=== PATIENT | female | born 1990 | race Caucasian/White ===

== ENCOUNTER 2016-07-27 11:36 | Emergency (ER) | payer OTHER ==
[~2016-07-27] VITALS: Ht 167.6 cm; Wt 79.0 kg
[~2016-07-27 11:36] MED LIST: CEFD300C2 PO; IBUP-1222 PO; IBUP800T PO; ONDA4TAB10 PO; OXYC-302 PO; PNV1TAB.5 PO
[2016-07-27 11:41] VITALS: BP 136/92
[2016-07-27] MEDS ORDERED: ONDANSETRON ODT 4 MG ONE (12:39)
[2016-07-27] MEDS ORDERED: ONDANSETRON ODT 4 MG PO ONE (13:30)
== END 2016-07-27 13:51 | disposition home or self-care (01) ==
LOC: ED 12:22
DX: S39.012A Strain of muscle, fascia and tendon of lower back, initial encounter (principal); S33.5XXA Sprain of ligaments of lumbar spine, initial encounter; F17.210 Nicotine dependence, cigarettes, uncomplicated; X50.9XXA Other and unspecified overexertion or strenuous movements or postures, initial encounter; Y93.89 Activity, other specified; Y92.89 Other specified places as the place of occurrence of the external cause; Y99.8 Other external cause status
CPT/HCPCS: 72072; 72110; 99284; Q0162

== ENCOUNTER 2016-08-09 18:24 | Emergency (ER) | payer OTHER ==
[~2016-08-09] VITALS: Ht 167.6 cm; Wt 79.6 kg
[~2016-08-09 18:24] MED LIST changes: -CEFD300C2 PO; +CEFD300C37 PO
[2016-08-09] MEDS ORDERED: ONDANSETRON 2MG/ML, 2ML ONE ×2 (18:59→20:54)
[2016-08-09] MEDS ORDERED: FAMOTIDINE 20 MG/2 ML ONE (18:59)
[2016-08-09] MEDS ORDERED: SODIUM CHLORIDE FLUSH 10ML SYR IVF ONE (19:00)
[2016-08-09] MEDS ORDERED: SODIUM CHLORIDE 0.9% 1,000ML IVBOLUS ONE (19:00)
[2016-08-09] MEDS ORDERED: FAMOTIDINE 20 MG/2 ML IVP ONE (19:00)
[2016-08-09] MEDS ORDERED: DICYCLOMINE 10 MG/ML, 2ML IM ONE (19:00)
[2016-08-09] MEDS ORDERED: ONDANSETRON 2MG/ML, 2ML IVPush ONE ×2 (19:00→21:00)
[2016-08-09 19:25] LABS: ASPARTATE AMINO TRANSFERASE 25 U/L (15-37); BLOOD UREA NITROGEN 8 mg/dL (7-18)
[2016-08-09] MEDS ORDERED: SERT50TA PO (19:34)
[2016-08-09] MEDS ORDERED: TRAZ100T15 PO (19:34)
[2016-08-09] MEDS ORDERED: ZOLP10TA PO (19:34)
[2016-08-09] MEDS ORDERED: ALPR1TAB2 PO (19:34)
[2016-08-09 20:41] VITALS: BP 126/72
== END 2016-08-09 22:47 | disposition home or self-care (01) ==
LOC: ED 22:08
DX: E86.0 Dehydration (principal); R19.7 Diarrhea, unspecified; R11.2 Nausea with vomiting, unspecified
CPT/HCPCS: 36415; 80053; 81001; 83690; 84703; 85025; 87086; 96361; 96372; 96374; 96375; 96376; 99284; J0500; J2405; J7030; S0028

== ENCOUNTER 2016-11-16 07:48 | Emergency (ER) | payer OTHER ==
[~2016-11-16] VITALS: Ht 167.6 cm; Wt 77.9 kg
[~2016-11-16 07:48] MED LIST changes: +ALPR1TAB2 PO; +SERT50TA PO; +TRAZ100T15 PO; +ZOLP10TA PO
[2016-11-16 07:50] VITALS: BP 126/90
[2016-11-16] MEDS ORDERED: IBUPROFEN 200 MG TABLET ONE (08:22)
[2016-11-16] MEDS ORDERED: IBUPROFEN 200 MG TABLET PO ONE (08:30)
== END 2016-11-16 09:30 | disposition home or self-care (01) ==
LOC: ED 09:02
DX: S83.91XA Sprain of unspecified site of right knee, initial encounter (principal); X58.XXXA Exposure to other specified factors, initial encounter; Y93.89 Activity, other specified; Y99.0 Civilian activity done for income or pay; Y92.69 Other specified industrial and construction area as the place of occurrence of the external cause
CPT/HCPCS: 29505; 99284

== ENCOUNTER 2017-02-17 10:24 | Emergency (ER) | payer OTHER ==
[~2017-02-17] VITALS: Ht 167.6 cm; Wt 79.3 kg
[~2017-02-17 10:24] MED LIST changes: +IBUP-1223 PO; -IBUP800T PO
[2017-02-17] MEDS ORDERED: KETOROLAC 30 MG/1 ML IVPush ONE (11:30)
[2017-02-17] MEDS ORDERED: SODIUM CHLORIDE FLUSH 10ML SYR IVF ONE (11:30)
[2017-02-17] MEDS ORDERED: SODIUM CHLORIDE 0.9% 1,000ML IVBOLUS ONE (11:30)
[2017-02-17] MEDS ORDERED: METOCLOPRAMIDE 5 MG/ML, 2ML IVPush ONE (11:30)
[2017-02-17] MEDS ORDERED: DIPHENHYDRAMINE 50 MG/ML, 1ML IVPush ONE (11:30)
[2017-02-17] MEDS ORDERED: DIPHENHYDRAMINE 50 MG/ML, 1ML ONE (11:39)
[2017-02-17] MEDS ORDERED: KETOROLAC 30 MG/1 ML ONE (11:39)
[2017-02-17] MEDS ORDERED: METOCLOPRAMIDE 5 MG/ML, 2ML ONE (11:39)
[2017-02-17 12:03] LABS: HEMATOCRIT 42.3 % (34.6-47.8); HEMOGLOBIN 14.3 g/dL (11.7-16.4); WHITE BLOOD COUNT 6.3 x10^3/uL (3.4-10)
[2017-02-17 12:05] LABS: ASPARTATE AMINO TRANSFERASE 10 U/L (15-37); BLOOD UREA NITROGEN 10 mg/dL (7-18)
[2017-02-17 12:24] LABS: PATH.CAST-FLAG NOT PRESENT; SPERM-FLAG NOT PRESENT; SRC-FLAG NOT PRESENT; XTAL-FLAG NOT PRESENT; YLC-FLAG NOT PRESENT
[2017-02-17 13:23] VITALS: BP 108/73
== END 2017-02-17 13:29 | disposition home or self-care (01) ==
LOC: ED 10:46
DX: R51 Headache (principal); Z87.891 Personal history of nicotine dependence; Z90.49 Acquired absence of other specified parts of digestive tract
CPT/HCPCS: 36415; 70450; 80053; 81001; 84703; 85025; 87086; 96361; 96374; 96375; 99285; J1200; J1885; J2765; J7030

== ENCOUNTER 2017-02-25 09:34 | Emergency (ER) | payer OTHER ==
[~2017-02-25] VITALS: Ht 167.6 cm; Wt 79.2 kg
[2017-02-25] MEDS ORDERED: SODIUM CHLORIDE FLUSH 10ML SYR IVF ONE (10:00)
[2017-02-25] MEDS ORDERED: KETOROLAC 30 MG/1 ML IVPush ONE (10:00)
[2017-02-25] MEDS ORDERED: CYCLOBENZAPRINE 10 MG TABLET PO ONE (10:00)
[2017-02-25] MEDS ORDERED: KETOROLAC 30 MG/1 ML ONE (10:16)
[2017-02-25 10:22] LABS: HEMATOCRIT 40.7 % (34.6-47.8); HEMOGLOBIN 13.8 g/dL (11.7-16.4); WHITE BLOOD COUNT 5.9 x10^3/uL (3.4-10)
[2017-02-25] MEDS ORDERED: CYCLOBENZAPRINE 10 MG TABLET ONE (10:27)
[2017-02-25 10:33] LABS: BLOOD UREA NITROGEN 9 mg/dL (7-18)
[2017-02-25] MEDS ORDERED: OMNIPAQUE 350 MG/ML, 100ML BOTTLE ONE (11:23)
[2017-02-25] MEDS ORDERED: AZIT250T PO (11:28)
[2017-02-25] MEDS ORDERED: BENZ-17 PO (11:28)
[2017-02-25 12:01] VITALS: BP 121/82
== END 2017-02-25 12:05 | disposition home or self-care (01) ==
LOC: ED 10:19
DX: M94.0 Chondrocostal junction syndrome [Tietze] (principal); J20.8 Acute bronchitis due to other specified organisms; B97.89 Other viral agents as the cause of diseases classified elsewhere; R91.1 Solitary pulmonary nodule; Z90.49 Acquired absence of other specified parts of digestive tract
CPT/HCPCS: 36415; 71020; 71275; 80048; 82040; 85025; 85379; 93005; 96374; 99285; J1885; Q9967

== ENCOUNTER → 2017-04-05 | Outpatient (CLI) | payer OTHER ==
[~2017-04-05] MED LIST changes: +AZIT250T PO; +BENZ-17 PO
== END | disposition home or self-care (01) ==
LOC: RAD 10:24
PROVIDERS: ATTEND Family Medicine
DX: M25.512 Pain in left shoulder (principal)

== ENCOUNTER 2017-07-13 13:40 | Emergency (ER) | payer OTHER ==
[~2017-07-13] VITALS: Ht 167.6 cm; Wt 84.3 kg
[2017-07-13 13:58] VITALS: BP 134/91
[2017-07-13] MEDS ORDERED: KETOROLAC 30 MG/1 ML ONE (14:43)
[2017-07-13] MEDS ORDERED: KETOROLAC 30 MG/1 ML IM ONE (15:00)
== END 2017-07-13 15:47 | disposition home or self-care (01) ==
LOC: ED 15:41
DX: S46.011A Strain of muscle(s) and tendon(s) of the rotator cuff of right shoulder, initial encounter (principal); W22.8XXA Striking against or struck by other objects, initial encounter; Y93.89 Activity, other specified; Y92.89 Other specified places as the place of occurrence of the external cause; Y99.8 Other external cause status; Z90.49 Acquired absence of other specified parts of digestive tract
CPT/HCPCS: 73030; 96372; 99284; J1885

== ENCOUNTER → 2017-07-26 | Outpatient (CLI) | payer OTHER ==
[2017-07-26 11:46] LABS: MICROSCOPIC AUTO
[2017-07-26 11:48] LABS: BASOPHILS # (AUTO) 0.04 x10^3/uL (0-0.1); BASOPHILS % (AUTO) 1 % (0-1); EOSINOPHILS # (AUTO) 0.12 x10^3/uL (0-0.4); EOSINOPHILS % (AUTO) 2 % (1-7); LYMPHOCYTES # (AUTO) 1.66 x10^3/uL (1-3.4); LYMPHOCYTES % (AUTO) 25 % (22-44); MD NO; MEAN CORPUSCULAR HEMOGLOBIN 31.2 pg (27.0-34.8); MEAN CORPUSCULAR HGB CONC 33.3 g/dL (32.4-35.8); MEAN CORPUSCULAR VOLUME 93.7 fL (80-100); MEAN PLATELET VOLUME 9.3 fL (7.4-10.4); MONOCYTES # (AUTO) 0.54 x10^3/uL (0.2-0.8); MONOCYTES % (AUTO) 8 % (2-9); NEUTROPHILS # (AUTO) 4.31 x10^3/uL (1.8-6.8); NEUTROPHILS % (AUTO) 65 % (42-75); PLATELET COUNT 274 x10^3/uL (130-400); RED BLOOD COUNT 4.52 x10^6/uL (3.82-5.3); RED CELL DISTRIBUTION WIDTH 13.9 % (9.6-15.2)
[2017-07-26 11:55] LABS: CULTURE INDICATED? YES
[2017-07-26 11:58] LABS: ALBUMIN 3.8 g/dL (3.4-5.0); ANION GAP 6 mmol/L (5-15); CALCIUM 8.7 mg/dL (8.5-10.1); CHLORIDE 109 mmol/L (98-107)
[2017-07-26 12:04] LABS: ALANINE AMINOTRANSFERASE 21 U/L (12-78); ALKALINE PHOSPHATASE 65 U/L (45-117); BILIRUBIN,TOTAL 0.7 mg/dL (0.2-1.0); CREATININE 0.82 mg/dL (0.55-1.02); TOTAL PROTEIN 7.3 g/dL (6.4-8.2)
== END | disposition home or self-care (01) ==
LOC: STAR 10:52
PROVIDERS: ATTEND Obstetrics & Gynecology Gynecology
DX: Z01.818 Encounter for other preprocedural examination (principal); R10.2 Pelvic and perineal pain
CPT/HCPCS: 36415; 80053; 81001; 84702; 85025; 87086

== ENCOUNTER 2017-08-05 05:58 | Day surgery (SDC) | payer OTHER ==
[~2017-08-05] VITALS: Ht 167.6 cm; Wt 85.4 kg
[2017-08-05 06:28] VITALS: BP 129/85
[2017-08-05] MEDS ORDERED: LACTATED RINGERS 1,000 ML IV SCH (06:33)
[2017-08-05] MEDS ORDERED: LIDOCAINE-MPF 1%, 2ML ONE (06:36)
[2017-08-05 06:46] LABS: HCG UR SG 1.013 (1.003-1.030)
[2017-08-05] MEDS ORDERED: LIDOCAINE-MPF 1%, 2ML INFIL ONE (07:00)
[2017-08-05] MEDS ORDERED: BUPIVACAINE 0.25% ONE (07:20)
[2017-08-05] MEDS ORDERED: EPINEPHRINE 1 MG/ML, 1ML ONE (07:20)
[2017-08-05] MEDS ORDERED: SILVER NITRATE STICK TP ONE (07:42)
[2017-08-05] MEDS ORDERED: MIDAZOLAM 1 MG/ML, 2ML ONE (07:43)
[2017-08-05] MEDS ORDERED: FENTANYL PF 250 MCG/5ML ONE (07:43)
[2017-08-05] MEDS ORDERED: SUCCINYLCHOLINE 20 MG/ML, 10ML ONE (07:51)
[2017-08-05] MEDS ORDERED: DEXAMETHASONE 4 MG/ML, 1ML ONE (07:51)
[2017-08-05] MEDS ORDERED: PROPOFOL 10 MG/ML, 20ML ONE (07:51)
[2017-08-05] MEDS ORDERED: ONDANSETRON ODT 8 MG ONE ×2 (07:52)
[2017-08-05] MEDS ORDERED: BUPIVACAINE/PF-EPI 0.25% 1:200K INFIL ONE (08:19)
[2017-08-05] MEDS ORDERED: HYDROmorphone 1 MG/ML, 1ML IV PRN (08:30)
[2017-08-05] MEDS ORDERED: ACETAMINOPHEN 325 MG TABLET PO PRN (08:30)
[2017-08-05] MEDS ORDERED: FENTANYL PF 100 MCG/2ML IV PRN (08:30)
[2017-08-05] MEDS ORDERED: PROMETHAZINE 12.5 MG SUPP PR PRN (08:30)
[2017-08-05] MEDS ORDERED: LORazepam 2 MG/ML, 1ML IVPush PRN (08:30)
[2017-08-05] MEDS ORDERED: morphine SULFATE 10 MG/ML, 1ML IV PRN (08:30)
[2017-08-05] MEDS ORDERED: hydrALAzine 20 MG/ML, 1ML IV PRN (08:30)
[2017-08-05] MEDS ORDERED: PROMETHAZINE 25 MG/ML, 1ML IV PRN (08:30)
[2017-08-05] MEDS ORDERED: MEPERIDINE/PF 25MG/0.5ML IVPush PRN (08:30)
[2017-08-05] MEDS ORDERED: LABETALOL 5MG/ML, 20ML IV PRN (08:30)
[2017-08-05] MEDS ORDERED: OXYcodone 5 MG/5 ML ORAL.SOL UDC PO PRN (08:30)
[2017-08-05] MEDS ORDERED: ACETAMINOPHEN 650 MG/20.3 ML UDC ONE (09:04)
[2017-08-05] MEDS ORDERED: ACETAMINOPHEN 325 MG TABLET ONE (09:05)
[2017-08-05] MEDS ORDERED: FENTANYL PF 100 MCG/2ML ONE (09:05)
[2017-08-05] MEDS ORDERED: OXYcodone 5 MG/5 ML ORAL.SOL UDC ONE (09:06)
[2017-08-05] MEDS ORDERED: KETOROLAC 30 MG/1 ML ONE (09:28)
[2017-08-05] MEDS ORDERED: KETOROLAC 30 MG/1 ML IVPush PRN (09:30)
== END 2017-08-05 12:00 ==
LOC: OUT 05:58
PROVIDERS: ATTEND Obstetrics & Gynecology Gynecology
DX: Z30.2 Encounter for sterilization (principal); N94.10 Unspecified dyspareunia; F32.9 Major depressive disorder, single episode, unspecified; Z98.890 Other specified postprocedural states; Z85.43 Personal history of malignant neoplasm of ovary
CPT/HCPCS: 36415; 58670; 81025; 86850; 86900; 88302; J0171; J0330; J1100; J1885; J2250; J2704; J3010; J3490; J7120; Q0162

== ENCOUNTER 2018-03-30 08:24 | Emergency (ER) | payer OTHER ==
[~2018-03-30] VITALS: Ht 167.6 cm; Wt 83.5 kg
[~2018-03-30 08:24] MED LIST changes: +TRAZ-137 PO; -TRAZ100T15 PO
[2018-03-30] MEDS ORDERED: MECLIZINE CHEWABLE 25 MG TAB PO ONE (09:00)
[2018-03-30 09:19] LABS: BASOPHILS # (AUTO) 0.02 x10^3/uL (0-0.1); BASOPHILS % (AUTO) 0 % (0-1); EOSINOPHILS # (AUTO) 0.16 x10^3/uL (0-0.4); EOSINOPHILS % (AUTO) 3 % (1-7); LYMPHOCYTES # (AUTO) 1.27 x10^3/uL (1-3.4); LYMPHOCYTES % (AUTO) 24 % (22-44); MD NO; MEAN CORPUSCULAR HEMOGLOBIN 31.5 pg (27.0-34.8); MEAN CORPUSCULAR HGB CONC 33.8 g/dL (32.4-35.8); MEAN CORPUSCULAR VOLUME 93.2 fL (80-100); MEAN PLATELET VOLUME 8.8 fL (7.4-10.4); MONOCYTES # (AUTO) 0.37 x10^3/uL (0.2-0.8); MONOCYTES % (AUTO) 7 % (2-9); NEUTROPHILS # (AUTO) 3.43 x10^3/uL (1.8-6.8); NEUTROPHILS % (AUTO) 65 % (42-75); PLATELET COUNT 296 x10^3/uL (130-400); RED BLOOD COUNT 4.35 x10^6/uL (3.82-5.3); RED CELL DISTRIBUTION WIDTH 13.7 % (9.6-15.2)
[2018-03-30 09:31] LABS: ALANINE AMINOTRANSFERASE 16 U/L (12-78); ALBUMIN 3.7 g/dL (3.4-5.0); ANION GAP 7 mmol/L (5-15); CALCIUM 8.7 mg/dL (8.5-10.1); CHLORIDE 108 mmol/L (98-107); CREATININE 0.91 mg/dL (0.55-1.02)
[2018-03-30 09:36] LABS: ALKALINE PHOSPHATASE 69 U/L (45-117); BILIRUBIN,TOTAL 0.3 mg/dL (0.2-1.0); TOTAL PROTEIN 7.2 g/dL (6.4-8.2)
[2018-03-30] MEDS ORDERED: MECLIZINE CHEWABLE 25 MG TAB ONE (09:37)
[2018-03-30 10:08] LABS: MICROSCOPIC AUTO
[2018-03-30 10:14] LABS: CULTURE INDICATED? NO
[2018-03-30 10:40] VITALS: BP 116/78
== END 2018-03-30 11:31 | disposition home or self-care (01) ==
LOC: ED 09:37
DX: R42 Dizziness and giddiness (principal); R19.7 Diarrhea, unspecified; R11.0 Nausea
CPT/HCPCS: 36415; 80053; 81001; 84703; 85025; 93005; 99284

== ENCOUNTER 2018-08-21 10:53 | Emergency (ER) | payer OTHER ==
[~2018-08-21] VITALS: Ht 167.6 cm; Wt 90.0 kg
[2018-08-21 11:07] VITALS: BP 114/80
[2018-08-21] MEDS ORDERED: METOCLOPRAMIDE 10MG TABLET PO ONE (11:30)
[2018-08-21] MEDS ORDERED: KETOROLAC 30 MG/1 ML IM ONE (11:30)
[2018-08-21] MEDS ORDERED: DIPHENHYDRAMINE 25 MG CAPSULE PO ONE (11:30)
--- NOTE | 2018-08-21 12:29 | NUR ---
n/a [id number]
--- NOTE | 2018-08-21 12:39 | NUR ---
No answer in lobby
== END 2018-08-21 12:43 | disposition left against medical advice (07) ==
LOC: ED 12:37
DX: G43.909 Migraine, unspecified, not intractable, without status migrainosus (principal)
CPT/HCPCS: 99281

== ENCOUNTER 2018-10-26 09:22 | Emergency (ER) | payer OTHER ==
[~2018-10-26] VITALS: Ht 167.6 cm; Wt 89.8 kg
[2018-10-26 09:24] VITALS: BP 127/81
== END 2018-10-26 10:56 | disposition home or self-care (01) ==
LOC: ED 10:50
DX: S90.02XA Contusion of left ankle, initial encounter (principal); X58.XXXA Exposure to other specified factors, initial encounter; Y93.89 Activity, other specified; Y92.69 Other specified industrial and construction area as the place of occurrence of the external cause; Y99.8 Other external cause status
CPT/HCPCS: 99283

== ENCOUNTER 2019-05-03 13:20 | Emergency (ER) | payer OTHER ==
[~2019-05-03] VITALS: Ht 167.6 cm; Wt 90.0 kg
[2019-05-03] MEDS ORDERED: SODIUM CHLORIDE FLUSH 10ML SYR IVF ONE (14:30)
[2019-05-03] MEDS ORDERED: SODIUM CHLORIDE 0.9% 1,000ML IVBOLUS ONE (14:30)
[2019-05-03] MEDS ORDERED: KETOROLAC 30 MG/1 ML IVPush ONE (14:30)
[2019-05-03 14:48] LABS: BASOPHILS # (AUTO) 0.03 x10^3/uL (0-0.1); BASOPHILS % (AUTO) 0 % (0-1); EOSINOPHILS # (AUTO) 0.14 x10^3/uL (0-0.4); EOSINOPHILS % (AUTO) 2 % (1-7); LYMPHOCYTES # (AUTO) 1.77 x10^3/uL (1-3.4); LYMPHOCYTES % (AUTO) 27 % (22-44); MD NO; MEAN CORPUSCULAR HGB CONC 33.4 g/dL (32.4-35.8); MEAN CORPUSCULAR VOLUME 92.8 fL (80-100); MEAN PLATELET VOLUME 8.9 fL (7.4-10.4); MONOCYTES # (AUTO) 0.45 x10^3/uL (0.2-0.8); MONOCYTES % (AUTO) 7 % (2-9); NEUTROPHILS # (AUTO) 4.16 x10^3/uL (1.8-6.8); NEUTROPHILS % (AUTO) 64 % (42-75); PLATELET COUNT 304 x10^3/uL (130-400); RED CELL DISTRIBUTION WIDTH 14.3 % (9.6-15.2)
[2019-05-03 14:56] LABS: ALANINE AMINOTRANSFERASE 23 U/L (12-78); ALBUMIN 3.6 g/dL (3.4-5.0); ANION GAP 5 mmol/L (5-15); CALCIUM 8.8 mg/dL (8.5-10.1); CHLORIDE 109 mmol/L (98-107); CREATININE 0.86 mg/dL (0.55-1.02)
[2019-05-03 14:58] LABS: ALKALINE PHOSPHATASE 71 U/L (45-117); BILIRUBIN,TOTAL 0.5 mg/dL (0.2-1.0); TOTAL PROTEIN 7.2 g/dL (6.4-8.2)
--- NOTE | 2019-05-03 15:05 | NUR ---
PT IN IMAGING AT THIS TIME.
--- NOTE | 2019-05-03 15:06 | NUR ---
REPORT AND CARE FROM ANDREIA RN. PT NOT IN ROOM, PT IN IMAGING AT THIS TIME PER ANDREIA EDEN. TO START IV AND COMPLETE ASSESSMENT ON RETURN TO ER
[2019-05-03] MEDS ORDERED: KETOROLAC 30 MG/1 ML ONE ×2 (15:21→15:38)
--- NOTE | 2019-05-03 15:46 | NUR ---
PT BACK FROM RAD. IV PLACED, IVF INFUSING PER MD ORDER. MEDICATED NOTED PER EMAR FOR 01/11 "PELVIC/CRAMPING" PAIN. CONT PULSE OX, BP MONITORS APPLIED. VSS. CALL LIGHT IN REACH. FALL PRECAUTIONS IN PLACE. A&OX4. PT PLACED ON PELVIC BED PER DR. CHILDS REQUEST, PELVIC EXAM SET UP, TO COMPLETE STRAIGHT CATH AT TIME OF PELVIC EXAM PER MD.
--- NOTE | 2019-05-03 16:15 | NUR ---
PELVIC EXAM COMPLETED BY DR. CHILDS WITH ASSISTANCE FROM THIS RN. STRAIGHT CATH UA COLLECTED AND WALKED TO LAB. PT TOLERATED WELL, DENIES ANY PAIN OR DISCOMFORT. RATES "PILVIC/OVARY/CRAMPING PAIN" 10/ S/P MEDICATION, DISCUSSED WITH DR. CHILDS, AWARE, AWAITING ORDERS. CALL LIGHT IN REACH. FALL PRECAUTIONS IN PLACE. VSS. FAMILY AT BEDSIDE
--- NOTE | 2019-05-03 16:16 | NUR ---
BEDSIDE REPORT AND TRANSFER OF CARE TO MADDISON EDEN AT THIS TIME.
[2019-05-03 16:26] LABS: HCG UR SG 1.007 (1.003-1.030); MICROSCOPIC NOT IND
[2019-05-03 16:35] LABS: CULTURE INDICATED? NO
[2019-05-03 17:11] LABS: CLUE CELLS PRESENT (NONE SEEN); WET PREP WBCS MODERATE (FEW)
[2019-05-03 17:59] VITALS: BP 105/65
== END 2019-05-03 18:02 | disposition home or self-care (01) ==
LOC: ED 15:39
DX: N76.0 Acute vaginitis (principal)
CPT/HCPCS: 36415; 76830; 80053; 81003; 81025; 85025; 87210; 87491; 87591; 87808; 96374; 99284; J1885; J7030

== ENCOUNTER 2019-06-05 15:15 | Outpatient (CLI) | payer OTHER ==
[~2019-06-05 15:15] MED LIST changes: -TRAZ-137 PO; +TRAZ-175 PO
[2019-06-05] MEDS ORDERED: LAMO25TA52 PO (15:56)
[2019-06-05] MEDS ORDERED: TRAZ50TA66 PO (15:56)
[2019-06-05 16:55] LABS: HCG UR SG 1.009 (1.003-1.030)
== END 2019-06-05 23:59 | disposition home or self-care (01) ==
LOC: STAR 15:15
PROVIDERS: ATTEND Obstetrics & Gynecology Gynecology
DX: Z01.818 Encounter for other preprocedural examination (principal); R10.2 Pelvic and perineal pain; R58 Hemorrhage, not elsewhere classified; N94.10 Unspecified dyspareunia
CPT/HCPCS: 81025

== ENCOUNTER 2019-06-12 05:27 | Day surgery (SDC) | payer OTHER ==
[~2019-06-12] VITALS: Ht 167.6 cm; Wt 90.5 kg
[~2019-06-12 05:27] MED LIST changes: +LAMO25TA52 PO; +TRAZ50TA66 PO
[2019-06-12 06:04] VITALS: BP 119/83
[2019-06-12 06:34] LABS: HCG UR SG 1.025 (1.003-1.030)
[2019-06-12] MEDS ORDERED: LACTATED RINGERS 1,000 ML IV SCH (06:35)
[2019-06-12] MEDS ORDERED: BUPIVACAINE/PF 0.25% ONE (07:13)
[2019-06-12] MEDS ORDERED: FENTANYL PF 250 MCG/5ML ONE (07:14)
[2019-06-12] MEDS ORDERED: EPINEPHRINE 1 MG/ML, 1ML ONE (07:14)
[2019-06-12] MEDS ORDERED: INDIGO CARMINE 0.8%, 5ML ONE (07:14)
[2019-06-12] MEDS ORDERED: MIDAZOLAM 1 MG/ML, 2ML ONE (07:14)
[2019-06-12] MEDS ORDERED: GABAPENTIN 300 MG CAPSULE ONE ×2 (07:20)
[2019-06-12] MEDS ORDERED: APREPITANT 40 MG CAPSULE ONE ×2 (07:20)
[2019-06-12] MEDS ORDERED: PROPOFOL 10 MG/ML, 20ML ONE (07:41)
[2019-06-12] MEDS ORDERED: SUGAMMADEX 200 MG/2 ML IVPush ONE (07:41)
[2019-06-12] MEDS ORDERED: DEXAMETHASONE 4 MG/ML, 1ML ONE (07:41)
[2019-06-12] MEDS ORDERED: ONDANSETRON 2MG/ML, 2ML ONE (07:41)
[2019-06-12] MEDS ORDERED: ROCURONIUM 10MG/ML,5ML ONE (07:41)
[2019-06-12] MEDS ORDERED: CEFOTETAN 2 GM ONE (07:41)
[2019-06-12] MEDS ORDERED: MEPERIDINE/PF 25MG/ML,1ML IVPush PRN (08:00)
[2019-06-12] MEDS ORDERED: HALOPERIDOL 5 MG/ML IV PRN (08:00)
[2019-06-12] MEDS ORDERED: hydrALAzine 20 MG/ML, 1ML IV PRN (08:00)
[2019-06-12] MEDS ORDERED: HYDROmorphone 2 MG/ML, 1ML IVPush PRN (08:00)
[2019-06-12] MEDS ORDERED: ACETAMINOPHEN 325 MG TABLET PO PRN (08:00)
[2019-06-12] MEDS ORDERED: OXYcodone 5 MG/5 ML ORAL.SOL UDC PO PRN ×2 (08:00→11:30)
[2019-06-12] MEDS ORDERED: [UNRECOGNIZED DRUG - OTHER] IVPB SCH (08:30)
[2019-06-12] MEDS ORDERED: MEPERIDINE/PF 50 MG/ML ONE (09:15)
[2019-06-12] MEDS ORDERED: OXYcodone 5 MG/5 ML ORAL.SOL UDC ONE (09:43)
[2019-06-12] MEDS ORDERED: ACETAMINOPHEN 650 MG/20.3 ML UDC ONE (09:44)
[2019-06-12] MEDS ORDERED: FENTANYL PF 100 MCG/2ML ONE (09:44)
[2019-06-12] MEDS: FENTANYL PF 100 MCG/2ML IV PRN ×3 (09:49→10:17)
[2019-06-12] MEDS ORDERED: METHOCARBAMOL 1,000 MG in DEXTROSE 5% 100 ML IV ONE (10:30)
[2019-06-12] MEDS ORDERED: KETOROLAC 30 MG/1 ML IVPush PRN (11:30)
[2019-06-12] MEDS ORDERED: morphine SULFATE 10 MG/ML, 1ML IVPush PRN (11:30)
[2019-06-12] MEDS ORDERED: ONDANSETRON 2MG/ML, 2ML IVPush PRN (11:30)
== END 2019-06-12 12:50 | disposition home or self-care (01) ==
LOC: OUT 05:27
PROVIDERS: ATTEND Obstetrics & Gynecology Gynecology
DX: N93.9 Abnormal uterine and vaginal bleeding, unspecified (principal); N80.0 Endometriosis of uterus; N94.10 Unspecified dyspareunia; R10.2 Pelvic and perineal pain; F32.9 Major depressive disorder, single episode, unspecified; Z79.891 Long term (current) use of opiate analgesic; Z79.899 Other long term (current) drug therapy; Z87.891 Personal history of nicotine dependence; Z90.79 Acquired absence of other genital organ(s); Z90.49 Acquired absence of other specified parts of digestive tract
CPT/HCPCS: 58570; 81025; 88307; J0171; J1100; J2175; J2250; J2405; J2704; J2800; J3010; J3490; J7120; J8501; S2900

== ENCOUNTER 2020-01-19 22:37 | Emergency (ER) | payer OTHER ==
[~2020-01-19] VITALS: Ht 167.6 cm; Wt 82.9 kg
--- NOTE | 2020-01-19 22:49 | NUR ---
PT GIVEN URINE CUP AND AWARE TO REMAINS NPO, WALKING BENT OVER AND OBVIOUS DISCOMFORT
--- NOTE | 2020-01-19 22:58 | NUR ---
pt reports coming into ed today for severe abdominal pain, states its been ongoing for about a week and got significantly worse today when she was in her house with her daughter and she collapsed due to pain. Pt reports nausea/vomitting x3 episodes. denies hitting head, describes pain as cramping with intermittent stabbing feelings. Pt groaning while resting on gurdave, NAD, at bs, waiting for ERP eval at this time. WCTM. provided warm blankets for comfortable.
[2020-01-19] MEDS ORDERED: MORPHINE SULFATE 4 MG/ML, 1ML IVPush ONE (23:30)
[2020-01-19] MEDS ORDERED: ONDANSETRON 2MG/ML, 2ML IVPush ONE (23:30)
[2020-01-19] MEDS ORDERED: ONDANSETRON 2MG/ML, 2ML ONE (23:32)
[2020-01-19] MEDS ORDERED: MORPHINE SULFATE 4 MG/ML, 1ML ONE (23:32)
[2020-01-19 23:53] LABS: BASOPHILS % (AUTO) 1 % (0-1); EOSINOPHILS % (AUTO) 1 % (1-7); LYMPHOCYTES % (AUTO) 33 % (22-44); MEAN CORPUSCULAR HEMOGLOBIN 30.6 pg (27.0-34.8); MEAN PLATELET VOLUME 8.8 fL (7.4-10.4); MONOCYTES % (AUTO) 6 % (2-9); NEUTROPHILS % (AUTO) 60 % (42-75); PLATELET COUNT 296 x10^3/uL (130-400); RED CELL DISTRIBUTION WIDTH 13.7 % (9.6-15.2)
--- NOTE | 2020-01-19 23:54 | NUR ---
pt medicated per mar for pain, assisted to bathroom via wheelchair, urine collected and sent to lab. pt nad, given additional warm blankets for comfort, wctm.
[2020-01-20] LABS: MD NO
[2020-01-20 00:02] LABS: ALANINE AMINOTRANSFERASE 20 U/L (12-78); ALBUMIN 3.9 g/dL (3.4-5.0); ANION GAP 5 mmol/L (5-15); CALCIUM 8.9 mg/dL (8.5-10.1); CHLORIDE 108 mmol/L (98-107); CREATININE 0.87 mg/dL (0.55-1.02)
[2020-01-20 00:05] LABS: ALKALINE PHOSPHATASE 61 U/L (45-117); BILIRUBIN,TOTAL 0.8 mg/dL (0.2-1.0); TOTAL PROTEIN 7.3 g/dL (6.4-8.2)
[2020-01-20 00:06] LABS: HCG UR SG 1.027 (1.003-1.030); MICROSCOPIC AUTO
[2020-01-20 00:27] VITALS: BP 106/68
[2020-01-20] MEDS ORDERED: ONDANSETRON 2MG/ML, 2ML ONE (00:42)
[2020-01-20] MEDS ORDERED: MORPHINE SULFATE 4 MG/ML, 1ML ONE (00:42)
[2020-01-20] MEDS ORDERED: ONDANSETRON 2MG/ML, 2ML IVPush ONE (01:00)
[2020-01-20] MEDS ORDERED: MORPHINE SULFATE 4 MG/ML, 1ML IVPush ONE (01:00)
--- NOTE | 2020-01-20 01:30 | NUR ---
Patient given discharge instructions and they have confirmed that they understand the instructions. Patient opted for wheelchair to leave. pt nad, no personal belongings leftin room at time of dc.
== END 2020-01-20 01:32 | disposition home or self-care (01) ==
LOC: ED 23:00
DX: R10.84 Generalized abdominal pain (principal); R10.2 Pelvic and perineal pain; R11.2 Nausea with vomiting, unspecified; R63.0 Anorexia; R94.31 Abnormal electrocardiogram [ECG] [EKG]; Z90.89 Acquired absence of other organs; Z90.710 Acquired absence of both cervix and uterus
CPT/HCPCS: 36415; 80053; 81001; 81025; 83690; 85025; 93005; 96374; 96375; 96376; 99284; J2270; J2405

== ENCOUNTER 2020-03-06 08:45 | Day surgery (SDC) | payer OTHER ==
[2020-03-05 15:30] LABS: BASOPHILS % (AUTO) 1 % (0-1); EOSINOPHILS % (AUTO) 2 % (1-7); LYMPHOCYTES % (AUTO) 32 % (22-44); MEAN CORPUSCULAR HEMOGLOBIN 31.4 pg (27.0-34.8); MEAN CORPUSCULAR HGB CONC 33.5 g/dL (32.4-35.8); MEAN PLATELET VOLUME 8.6 fL (7.4-10.4); MONOCYTES % (AUTO) 8 % (2-9); NEUTROPHILS % (AUTO) 57 % (42-75); PLATELET COUNT 302 x10^3/uL (130-400); RED BLOOD COUNT 4.28 x10^6/uL (3.82-5.3)
[2020-03-05 15:31] LABS: MD NO
[2020-03-05 15:38] LABS: ALANINE AMINOTRANSFERASE 17 U/L (12-78); ALBUMIN 3.9 g/dL (3.4-5.0); ANION GAP 2 mmol/L (5-15); CALCIUM 8.9 mg/dL (8.5-10.1); CHLORIDE 108 mmol/L (98-107); CREATININE 0.98 mg/dL (0.55-1.02)
[2020-03-05 15:42] LABS: ALKALINE PHOSPHATASE 64 U/L (45-117); BILIRUBIN,TOTAL 0.4 mg/dL (0.2-1.0); TOTAL PROTEIN 7.2 g/dL (6.4-8.2)
[2020-03-05 15:50] LABS: MICROSCOPIC INDICATED
[~2020-03-06] VITALS: Ht 167.6 cm; Wt 81.1 kg
[~2020-03-06 08:45] MED LIST changes: +MELA5TAB14 PO; +PRAZ2CAP2 PO
[2020-03-06 09:15] VITALS: BP 106/72
[2020-03-06] MEDS ORDERED: LACTATED RINGERS 1,000 ML IV SCH (09:30)
[2020-03-06] MEDS ORDERED: CHLORHEXIDINE 15 ML UDC MM ONE (09:30)
[2020-03-06] MEDS ORDERED: FENTANYL PF 250 MCG/5ML ONE (11:38)
[2020-03-06] MEDS ORDERED: MIDAZOLAM 1 MG/ML, 2ML ONE (11:38)
[2020-03-06] MEDS ORDERED: BUPIVACAINE/PF 0.25% ONE (11:39)
[2020-03-06] MEDS ORDERED: EPINEPHRINE 1 MG/ML, 1ML ONE (11:39)
[2020-03-06] MEDS ORDERED: KETOROLAC 30 MG/1 ML ONE (11:52)
[2020-03-06] MEDS ORDERED: PROPOFOL 10 MG/ML, 20ML ONE (11:52)
[2020-03-06] MEDS ORDERED: CEFAZOLIN 1,000 MG ONE (11:52)
[2020-03-06] MEDS ORDERED: ROCURONIUM 10MG/ML,5ML ONE (11:52)
[2020-03-06] MEDS ORDERED: DEXAMETHASONE 4 MG/ML, 1ML ONE (11:59)
[2020-03-06] MEDS ORDERED: ONDANSETRON 2MG/ML, 2ML ONE (12:15)
[2020-03-06] MEDS ORDERED: SUGAMMADEX 200 MG/2 ML IVPush ONE (12:15)
[2020-03-06] MEDS ORDERED: ACETAMINOPHEN 325 MG TABLET PO PRN (12:30)
[2020-03-06] MEDS ORDERED: hydrALAzine 20 MG/ML, 1ML IV PRN (12:30)
[2020-03-06] MEDS ORDERED: PROMETHAZINE 25 MG/ML, 1ML IVPush PRN (12:30)
[2020-03-06] MEDS ORDERED: LABETALOL 5MG/ML, 20ML IV PRN (12:30)
[2020-03-06] MEDS ORDERED: DIPHENHYDRAMINE 50 MG/ML, 1ML IVPush PRN (12:30)
[2020-03-06] MEDS ORDERED: ONDANSETRON 2MG/ML, 2ML IVPush PRN (12:30)
[2020-03-06] MEDS ORDERED: MEPERIDINE/PF 25MG/0.5ML IVPush PRN (12:30)
[2020-03-06] MEDS ORDERED: ALBUTEROL SULFATE 2.5 MG/3 ML NPPB PRN (12:30)
[2020-03-06] MEDS ORDERED: EPHEDRINE 50 MG/ML, 1ML IVPush PRN (12:30)
[2020-03-06] MEDS ORDERED: PROMETHAZINE 12.5 MG SUPP PR PRN (12:30)
[2020-03-06] MEDS ORDERED: HYDROmorphone 1 MG/ML, 1ML INJ IVPush PRN (12:30)
[2020-03-06] MEDS ORDERED: DIAZEPAM 5 MG/ML, 2ML IVPush PRN (12:30)
[2020-03-06] MEDS ORDERED: OXYcodone 5 MG/5 ML ORAL.SOL UDC PO PRN (12:30)
[2020-03-06] MEDS ORDERED: MIDAZOLAM 1 MG/ML, 2ML IV PRN (12:30)
[2020-03-06] MEDS ORDERED: OXYcodone 5 MG/5 ML ORAL.SOL UDC ONE (12:59)
[2020-03-06] MEDS ORDERED: FENTANYL PF 100 MCG/2ML ONE (12:59)
[2020-03-06] MEDS ORDERED: MEPERIDINE/PF 25MG/ML,1ML ONE (13:03)
[2020-03-06] MEDS: FENTANYL PF 100 MCG/2ML IV PRN ×2 (13:07→13:17)
[2020-03-06] MEDS ORDERED: DIAZEPAM 5 MG/ML, 2ML ONE (13:25)
[2020-03-06] MEDS ORDERED: morphine SULFATE 10 MG/ML, 1ML ONE (14:37)
[2020-03-06] MEDS ORDERED: morphine SULFATE/PF 0.5 MG/ML, 10ML IV PRN ×3 (15:00→15:30)
[2020-03-06] MEDS ORDERED: MORPHINE SULFATE 4 MG/ML, 1ML IV PRN (15:22)
== END 2020-03-06 15:45 | disposition home or self-care (01) ==
LOC: OUT 08:45
PROVIDERS: ATTEND Obstetrics & Gynecology Gynecology
DX: R10.2 Pelvic and perineal pain (principal); N94.10 Unspecified dyspareunia; F32.9 Major depressive disorder, single episode, unspecified; Z20.828 Contact with and (suspected) exposure to other viral communicable diseases; Z79.891 Long term (current) use of opiate analgesic; Z79.899 Other long term (current) drug therapy; Z87.891 Personal history of nicotine dependence; Z90.49 Acquired absence of other specified parts of digestive tract; Z90.710 Acquired absence of both cervix and uterus; Z98.51 Tubal ligation status
CPT/HCPCS: 36415; 58679; 80053; 81001; 84702; 85025; 86850; 86900; 87086; 87635; J0171; J0690; J1100; J1885; J2175; J2250; J2274; J2405; J2704; J3010; J3360; J7120; S2900

== ENCOUNTER 2020-07-23 18:48 | Emergency (ER) | payer OTHER ==
[~2020-07-23] VITALS: Ht 167.6 cm; Wt 89.0 kg
[~2020-07-23 18:48] MED LIST changes: -OXYC-302 PO; +OXYC1TAB14 PO
--- NOTE | 2020-07-23 19:23 | NUR ---
pt here for do, body aches and sore throat x 2 days. vss. pt placed on pulse ox and bp monitoring. at bedside
[2020-07-23] MEDS ORDERED: IBUPROFEN 200 MG TABLET ONE (19:41)
[2020-07-23] MEDS ORDERED: IBUPROFEN 200 MG TABLET PO ONE (20:00)
--- NOTE | 2020-07-23 20:56 | NUR ---
Patient given discharge instructions and they have confirmed that they understand the instructions. Patient ambulatory with steady gait.
[2020-07-23 20:57] VITALS: BP 121/83
== END 2020-07-23 20:59 | disposition home or self-care (01) ==
LOC: ED 20:10
DX: U07.1 COVID-19 (principal); B34.9 Viral infection, unspecified; R51.9 Headache, unspecified; J02.9 Acute pharyngitis, unspecified; Z90.89 Acquired absence of other organs
CPT/HCPCS: 87081; 99283; U0003